=== PATIENT | male | born 1945 ===

== ENCOUNTER 2023-06-19 12:38 | Outpatient (CLI) | payer OTHER, SELFPAY | END 2023-06-19 12:39 | disposition home or self-care (01) | LOC: US 12:43 | PROVIDERS: Visit Provider Podiatrist Foot & Ankle Surgery | DX: L97.512 Non-pressure chronic ulcer of other part of right foot with fat layer exposed (principal); I77.1 Stricture of artery | CPT/HCPCS: 93922 ==